=== PATIENT | male | born 1965 | race Caucasian/White ===

== ENCOUNTER 2021-05-24 10:31 | Inpatient (IN) | payer OTHER ==
[~2021-05-24] VITALS: Ht 193 cm; Wt 103.9 kg
[2021-05-24 11:15] LABS: RED BLOOD COUNT 4.43 M/UL (4.20-5.50); WHITE BLOOD COUNT 16.5 K/UL (4.5-11.0)
[2021-05-24 11:32] LABS: BUN/CREATININE RATIO 21 (0-10)
[2021-05-24] MEDS ORDERED: FOLIC ACID 1 MG1 MG PO (16:04)
[2021-05-24] MEDS ORDERED: DAILY VITE1 EACH PO (16:04)
[2021-05-24] MEDS ORDERED: VITAMIN D 40400 UNIT PO (16:05)
[2021-05-24] MEDS ORDERED: VITAMIN B-121000 MC3 PO (16:05)
[2021-05-25 04:00] LABS: HEMOGLOBIN 13.1 gm/dl (14.0-17.5)
[2021-05-25 04:06] LABS: RED BLOOD COUNT 3.95 M/UL (4.20-5.50)
[2021-05-25 04:27] LABS: BUN/CREATININE RATIO 22 (0-10)
[2021-05-26 10:33] LABS: HEMOGLOBIN 13.3 gm/dl (14.0-17.5); RED BLOOD COUNT 3.95 M/UL (4.20-5.50)
[2021-05-26 10:34] LABS: WHITE BLOOD COUNT 9.7 K/UL (4.5-11.0)
[2021-05-26 10:58] LABS: BUN/CREATININE RATIO 9 (0-10)
[2021-05-27] MEDS ORDERED: FLAGYL500 MG PO (11:29)
[2021-05-27] MEDS ORDERED: CIPRO500 MG PO (11:29)
[2021-05-27] MEDS ORDERED: ASPIRIN 325MG325 MG PO (11:30)
[2021-05-27] MEDS ORDERED: LOPRESSOR 50 MG50 MG PO (11:30)
== END 2021-05-27 15:35 | disposition home or self-care (01) | DRG 392 ==
LOC: ER1 10:31 → CDU 15:27 → MED SURG 4 15:27
PROVIDERS: Internal Medicine; Student in an Organized Health Care Education/Training Program; ADMIT Surgery
DX: K57.20 Diverticulitis of large intestine with perforation and abscess without bleeding (principal); I48.91 Unspecified atrial fibrillation; F17.210 Nicotine dependence, cigarettes, uncomplicated; Z96.5 Presence of tooth-root and mandibular implants; R00.0 Tachycardia, unspecified; F10.10 Alcohol abuse, uncomplicated; Y90.9 Presence of alcohol in blood, level not specified; Z20.822 Contact with and (suspected) exposure to COVID-19; Z90.49 Acquired absence of other specified parts of digestive tract; Z98.890 Other specified postprocedural states; Z86.69 Personal history of other diseases of the nervous system and sense organs; Z82.3 Family history of stroke; Z80.0 Family history of malignant neoplasm of digestive organs; Z82.49 Family history of ischemic heart disease and other diseases of the circulatory system; Z79.82 Long term (current) use of aspirin; Z79.899 Other long term (current) drug therapy; Z79.52 Long term (current) use of systemic steroids; Z88.0 Allergy status to penicillin
CPT/HCPCS: ECHO; 80048; 80053; 81001; 82550; 82553; 83605; 83690; 83735; 83874; 84132; 84439; 84443; 84484; 85025; 85027; 85652; 86140; 87040; 93005; 93306; 99285; J0696; J1160; J1650; J1956; J2270; J3480; J7030; Q9967; U0002

== ENCOUNTER 2021-08-03 11:40 | Emergency (ER) | payer OTHER ==
[~2021-08-03] VITALS: Ht 193 cm; Wt 95.7 kg
[~2021-08-03 11:40] MED LIST: ASPIRIN 325MG325 MG PO; CIPRO500 MG PO; DAILY VITE1 EACH PO; FLAGYL500 MG PO; FOLIC ACID 1 MG1 MG PO; LOPRESSOR 50 MG50 MG PO; VITAMIN B-121000 MC3 PO; VITAMIN D 40400 UNIT PO
[2021-08-03 13:18] LABS: HEMOGLOBIN 15.6 gm/dl (14.0-17.5); RED BLOOD COUNT 4.7 M/UL (4.20-5.50); WHITE BLOOD COUNT 8.9 K/UL (4.5-11.0)
[2021-08-03 13:40] LABS: BUN/CREATININE RATIO 29 (0-10)
== END 2021-08-03 15:22 | disposition home or self-care (01) ==
LOC: ER1 11:40
PROVIDERS: Nurse Practitioner
DX: L50.0 Allergic urticaria (principal); T37.3X5A Adverse effect of other antiprotozoal drugs, initial encounter
CPT/HCPCS: 80053; 81001; 85025; 96374; 96375; 99283; J1200; J2920; J7030